=== PATIENT | female | born 1945 | race Caucasian/White ===

== ENCOUNTER 2016-09-09 01:48 | Emergency (ER) | payer MEDICARE ==
[~2016-09-09] VITALS: Ht 167.6 cm; Wt 78.0 kg
[2016-09-09 01:53] VITALS: BP 120/69; PULSE 66; RESP 16; TEMP 97.7; O2SAT 95
[2016-09-09] MEDS ORDERED: MAGNSOL (02:12)
[2016-09-09] MEDS ORDERED: METF500T PO (02:12)
[2016-09-09] MEDS ORDERED: SOD PHOSPHATE/SOD BIPHOSPHATE (ADULT) ENEMA 133ML PR ONE (02:45)
--- NOTE | 2016-09-09 02:45 | PD ---
HPI Chief Complaint: GI Complaint Time Seen by Provider: 02:40 Travel History International Travel<30 days: No Contact w/Intl Traveler<30days: No Traveled to known affect area: No History of Present Illness HPI The patient is a 70-year-old female that states she has not had a bowel movement for 2 days. She is on a low-carb diet and is not drinking the amount of liquids she normally drinks. She states she took 300 cc of magnesium citrate an hour ago and drank 4 bottles of water but has not had a bowel movement yet. For this reason, she came into the emergency department. She says she knows she must have an impaction. She has never had an impaction before, she is not a laxative user. She has not been on any pain medications. She had some pain and a small amount of bright red bleeding per rectum tonight. PFSH Past Medical History Diabetes: Yes Patient Takes Glucophage: Yes ?: Not Social History Alcohol Use: No Tobacco Use: No Substance Use: No Allergies-Medications (Allergen,Severity, Reaction): Coded Allergies: Latex (Verified Allergy, Intermediate, 09/09/16) Penicillin (Verified Allergy, Intermediate, 09/09/16) Reported Meds & Prescriptions Reported Meds & Active Scripts Active Reported Metformin (Metformin HCl) 500 Mg Tab 500 Mg PO BIDPC With meals Magnesium Citrate Liq (Magnesium Citrate) 300 Ml Btl Review of Systems Except as stated in HPI: all other systems reviewed are Neg Physical Exam Narrative GENERAL: The patient appears mildly dehydrated, alert, oriented 3 in moderate apparent distress with her constipation. Her vital signs are normal. SKIN: Warm and dry. HEAD: Atraumatic. Normocephalic. EYES: Pupils equal and round. No scleral icterus. No injection or drainage. ENT: No nasal bleeding or discharge. Mucous membranes pink and moist. NECK: Trachea midline. No JVD. CARDIOVASCULAR: Regular rate and rhythm. No murmur appreciated. RESPIRATORY: No accessory muscle use. Clear to auscultation. Breath sounds equal bilaterally. GASTROINTESTINAL: Abdomen soft, non-tender, nondistended. Hepatic and splenic margins not palpable. No guarding or rebound is present. MUSCULOSKELETAL: No obvious deformities. No clubbing. No cyanosis. No edema. NEUROLOGICAL: Awake and alert. No obvious cranial nerve deficits. Motor grossly within normal limits. Normal speech. PSYCHIATRIC: Appropriate mood and affect; insight and judgment normal. RECTAL EXAM: No masses or tenderness, stool is brown and guaiac-negative. Large fecal impactions were removed per rectum. Data Data Last Documented VS Vital Signs Date Time Temp Pulse Resp B/P Pulse Ox O2 Delivery O2 Flow Rate FiO2 09/09/16 01:53 97.7 66 16 120/69 95 Orders Fleets Enema (Adult) (Fleets Enema (Adul (09/09/16 02:45) MDM Medical Decision Making Medical Screen Exam Complete: Yes Emergency Medical Condition: Yes Medical Record Reviewed: Yes Differential Diagnosis Constipation, ileus, small bowel obstruction, dehydration Narrative Course The patient appears to have constipation from dehydration. She promises to drink large amounts of liquids. She is not a chronic laxative user. She should increase her liquid intake and, hopefully this will resolve her problem. She should add fruit juices to her diet. She states she passed a large amount of stool and feels much better now patient it is 0322. Diagnosis Primary Impression: Fecal impaction Additional Impression: Mild dehydration Additional Instructions: As we discussed, try to increase the amounts of liquid in your diet because I believe your constipation was from dehydration. Med/Other Pt SpecificInfo: No Change to Meds Disposition: 01 DISCHARGE HOME Condition: Stable Albert Kaur MD Sep 09, 2016 02:45
[2016-09-09 03:45] VITALS: BP 134/72
== END 2016-09-09 03:46 | disposition home or self-care (01) ==
LOC: PHED 01:48
DX: K56.41 Fecal impaction (principal); E86.0 Dehydration; E11.9 Type 2 diabetes mellitus without complications
CPT/HCPCS: 99283